=== PATIENT | male | born 1940 | race Caucasian/White ===

== ENCOUNTER → 2023-08-25 08:09 | Outpatient (REF) | payer MEDICARE, OTHER, SELFPAY | LOC: RAD 08:09 | PROVIDERS: ATTENDING PHYSICIAN Student in an Organized Health Care Education/Training Program | DX: N18.32 Chronic kidney disease, stage 3b (principal) | CPT/HCPCS: 76770 ==

== ENCOUNTER 2024-11-09 06:19 | Day surgery (SDC) | payer MEDICARE, OTHER, SELFPAY | END 2024-11-09 11:05 | disposition home or self-care (01) | LOC: GI 06:19 | PROVIDERS: ATTENDING PHYSICIAN Specialist | DX: Z12.11 Encounter for screening for malignant neoplasm of colon (principal); K64.8 Other hemorrhoids; K57.30 Diverticulosis of large intestine without perforation or abscess without bleeding; D12.8 Benign neoplasm of rectum; K63.5 Polyp of colon; Z86.0101 Personal history of adenomatous and serrated colon polyps | CPT/HCPCS: 45385; 45380; 88305 ==